=== PATIENT | female | born 1940 | race Caucasian/White ===

== ENCOUNTER 2017-12-28 08:52 | Outpatient (CLI) | payer OTHER ==
[~2017-12-28 08:52] MED LIST: AMBIEN5 MG; CARDIZEM CD240 MG; CLARITIN5 MG/5 ML; COZAAR25 MG; FOLIC ACID1 MG; ISOSORBIDE DINI30 MG; NEURONTIN250 MG/5 M; PROCRIT
== END 2017-12-28 09:01 | disposition home or self-care (01) ==
LOC: LAB 08:52
DX: D63.1 Anemia in chronic kidney disease (principal); N18.4 Chronic kidney disease, stage 4 (severe); D59.1 Other autoimmune hemolytic anemias; D51.3 Other dietary vitamin B12 deficiency anemia; D53.8 Other specified nutritional anemias; I10 Essential (primary) hypertension; E03.8 Other specified hypothyroidism; I27.89 Other specified pulmonary heart diseases; D50.8 Other iron deficiency anemias; D51.8 Other vitamin B12 deficiency anemias; R97.0 Elevated carcinoembryonic antigen [CEA]; M32.8 Other forms of systemic lupus erythematosus

== ENCOUNTER 2018-09-05 10:35 | Emergency (ER) | payer OTHER ==
[~2018-09-05] VITALS: Ht 152.4 cm; Wt 59.0 kg
[2018-09-05] MEDS ORDERED: CARVEDILOL6.25 MG (10:44)
[2018-09-05] MEDS ORDERED: CARDURA XL8 MG (10:44)
[2018-09-05] MEDS ORDERED: SYNTHROID50 MCG (10:44)
[2018-09-05] MEDS ORDERED: ISOSORBIDE DINI30 MG (10:45)
[2018-09-05] MEDS ORDERED: AMLODIPINE BESYL5 MG (10:45)
== END 2018-09-05 13:23 | disposition home or self-care (01) ==
LOC: ER 10:35
DX: J44.1 Chronic obstructive pulmonary disease with (acute) exacerbation (principal); J11.1 Influenza due to unidentified influenza virus with other respiratory manifestations

== ENCOUNTER 2019-01-10 12:23 | Inpatient (IN) | payer OTHER ==
[~2019-01-10] VITALS: Ht 160 cm; Wt 54.4 kg
[~2019-01-10 12:23] MED LIST changes: +AMLODIPINE BESYL5 MG; +CARDURA XL8 MG; +CARVEDILOL6.25 MG; +SYNTHROID50 MCG
== END 2019-02-10 21:28 | disposition expired | DRG 291 ==
LOC: ER 12:23 → ICU-2 17:16 → ICU 01-11 20:51 → MEDJ 02-06 17:26
PROVIDERS: ADMIT Internal Medicine
PROC: 30233N1 Transfusion of Nonautologous Red Blood Cells into Peripheral Vein, Percutaneous Approach (ICD-10-PCS; principal; 2019-01-11)
PROC: BW40ZZZ Ultrasonography of Abdomen (ICD-10-PCS; 2019-01-11)
PROC: B246ZZZ Ultrasonography of Right and Left Heart (ICD-10-PCS; 2019-01-11)
PROC: 3E0F7GC Introduction of Other Therapeutic Substance into Respiratory Tract, Via Natural or Artificial Opening (ICD-10-PCS; 2019-01-13)
PROC: BW24ZZZ Computerized Tomography (CT Scan) of Chest and Abdomen (ICD-10-PCS; 2019-01-14)
PROC: BW21ZZZ Computerized Tomography (CT Scan) of Abdomen and Pelvis (ICD-10-PCS; 2019-01-25)
PROC: 02HV33Z Insertion of Infusion Device into Superior Vena Cava, Percutaneous Approach (ICD-10-PCS; 2019-01-25)
PROC: 4A12X4Z Monitoring of Cardiac Electrical Activity, External Approach (ICD-10-PCS; 2019-02-06)
DX: I13.0 Hypertensive heart and chronic kidney disease with heart failure and stage 1 through stage 4 chronic kidney disease, or unspecified chronic kidney disease (principal); N01.8 Rapidly progressive nephritic syndrome with other morphologic changes; J96.02 Acute respiratory failure with hypercapnia; I50.23 Acute on chronic systolic (congestive) heart failure; I46.9 Cardiac arrest, cause unspecified; I47.1 Supraventricular tachycardia; N17.8 Other acute kidney failure; J45.31 Mild persistent asthma with (acute) exacerbation; E87.2 Acidosis; N39.0 Urinary tract infection, site not specified; J90 Pleural effusion, not elsewhere classified; J44.1 Chronic obstructive pulmonary disease with (acute) exacerbation; S36.892A Contusion of other intra-abdominal organs, initial encounter; D62 Acute posthemorrhagic anemia; J93.83 Other pneumothorax; B96.29 Other Escherichia coli [E. coli] as the cause of diseases classified elsewhere; I27.29 Other secondary pulmonary hypertension; D64.89 Other specified anemias; D63.1 Anemia in chronic kidney disease; D63.8 Anemia in other chronic diseases classified elsewhere; M32.8 Other forms of systemic lupus erythematosus; N18.1 Chronic kidney disease, stage 1; E03.8 Other specified hypothyroidism; L29.2 Pruritus vulvae; K59.09 Other constipation; D69.6 Thrombocytopenia, unspecified; R60.1 Generalized edema; Z66 Do not resuscitate; Z79.01 Long term (current) use of anticoagulants; Z99.81 Dependence on supplemental oxygen